=== PATIENT | female | born 1990 | race African-American/Black ===

== ENCOUNTER 2021-01-02 11:15 | Emergency (ER) | payer MEDICAID ==
[~2021-01-02] VITALS: Ht 162.6 cm; Wt 53.0 kg
[2021-01-02] MEDS ORDERED: MORPHINE SULFATE 4 MG/ML CPJ (NOT FOR IM USE) IV STA (11:46)
[2021-01-02] MEDS ORDERED: KETOROLAC 30MG/ML VIAL IV STA (11:46)
[2021-01-02] MEDS ORDERED: ONDANSETRON HCL 4MG/2ML INJ IV STA (11:46)
[2021-01-02] MEDS ORDERED: SODIUM CHLORIDE 0.9% 1,000 ML IV ONE (12:00)
[2021-01-02 12:15] VITALS: BP 108/22
== END 2021-01-02 13:56 | disposition left against medical advice (07) ==
LOC: ER 11:15
DX: D57.00 Hb-SS disease with crisis, unspecified (principal); M54.89 Other dorsalgia; I10 Essential (primary) hypertension; F12.10 Cannabis abuse, uncomplicated; F17.210 Nicotine dependence, cigarettes, uncomplicated
CPT/HCPCS: 99281; J7030; Z7610

== ENCOUNTER 2021-12-17 19:31 | Emergency (ER) | payer MEDICAID ==
[~2021-12-17] VITALS: Ht 162.6 cm; Wt 50.0 kg
[2021-12-17] MEDS ORDERED: MORPHINE SULFATE 4 MG/ML CPJ (NOT FOR IM USE) IV STA (19:44)
[2021-12-17] MEDS ORDERED: ONDANSETRON HCL 4MG/2ML INJ IV STA (19:44)
[2021-12-17] MEDS ORDERED: SODIUM CHLORIDE 0.9% 1,000 ML IV ONE (19:45)
[2021-12-17 20:12] VITALS: BP 118/83
[2021-12-17 20:28] LABS: BASOPHILS % 0.4 % (0.0-2.0); EOSINOPHILS % 5.5 % (0.0-5.0); HEMOGLOBIN. 7.1 g/dL (12.0-16.0); MEAN CORPUSCULAR HEMOGLOBIN 33.6 pg (28.0-32.0); MEAN CORPUSCULAR VOLUME 97.4 fL (81.0-99.0); MEAN PLATELET VOLUME 9.5 fl (7.4-10.4); MONOCYTES % 12.8 % (2.0-8.0); NEUTROPHILS % 68.3 % (40.0-76.0); PLATELET 275 x1000/uL (130-400); RED BLOOD CELL COUNT 2.11 mill/uL (4.2-5.4); RED CELL DISTRIBUTION WIDTH 19.3 % (11.6-14.6)
[2021-12-17 20:36] LABS: CHLORIDE 107 mEq/L (98-107)
[2021-12-17 20:37] LABS: HEMATOCRIT. 20.6 % (36.0-48.0)
[2021-12-17 20:42] LABS: HCG SCREEN NEGATIVE
== END 2021-12-17 23:42 | disposition left against medical advice (07) ==
LOC: ER 19:31
DX: R10.30 Lower abdominal pain, unspecified (principal); D64.9 Anemia, unspecified; E87.6 Hypokalemia; F12.10 Cannabis abuse, uncomplicated; F15.10 Other stimulant abuse, uncomplicated; I10 Essential (primary) hypertension
CPT/HCPCS: 36415; 80053; 84703; 85025; 99283; J7030

== ENCOUNTER 2022-01-01 12:47 | Emergency (ER) | payer MEDICAID ==
[~2022-01-01] VITALS: Ht 162.6 cm; Wt 43.0 kg
[2022-01-01] MEDS ORDERED: ONDANSETRON HCL 4MG/2ML INJ IV ONE (14:15)
[2022-01-01] MEDS ORDERED: HYDROMORPHONE HCL/PF 2MG/ML CPJ IV ONE (14:15)
[2022-01-01] MEDS ORDERED: SODIUM CHLORIDE 0.9% 1,000 ML IV ONE (14:15)
[2022-01-01] MEDS ORDERED: KETOROLAC 15MG/ML VIAL IV ONE (14:15)
[2022-01-01 14:20] LABS: CHLORIDE 104 mEq/L (98-107)
[2022-01-01 14:25] LABS: ETHANOL BLOOD < 10 mg/dL; MEAN CORPUSCULAR HEMOGLOBIN 32.1 pg (28.0-32.0); MEAN CORPUSCULAR VOLUME 94.6 fL (81.0-99.0); MEAN PLATELET VOLUME 10.5 fl (7.4-10.4); PLATELET 154 x1000/uL (130-400); RED BLOOD CELL COUNT 2.08 mill/uL (4.2-5.4); RED CELL DISTRIBUTION WIDTH 15.1 % (11.6-14.6)
[2022-01-01 14:28] LABS: HCG SCREEN NEGATIVE
[2022-01-01 14:30] LABS: HEMATOCRIT. 19.7 % (36.0-48.0); HEMOGLOBIN. 6.7 g/dL (12.0-16.0)
[2022-01-01 14:37] LABS: *AMPHETAMINES SCREEN URINE NEGATIVE (NEGATIVE); *BARBITURATES SCREEN URINE NEGATIVE (NEGATIVE); *BENZODIAZEPINES SCREEN URINE NEGATIVE (NEGATIVE); METHADONE URINE SCREEN NEGATIVE (NEGATIVE)
[2022-01-01 14:38] LABS: PHENCYCLIDINE URINE SCREEN NEGATIVE (NEGATIVE)
[2022-01-01 14:51] LABS: *COCAINE SCREEN URINE PRESUMTIVE POSITIVE (NEGATIVE); CANNABINOID URINE SCREEN PRESUMTIVE POSITIVE (NEGATIVE); OPIATES URINE SCREEN PRESUMTIVE POSITIVE (NEGATIVE)
[2022-01-01] MEDS ORDERED: IBUP-2029 MT (15:21)
[2022-01-01 15:30] VITALS: BP 143/80
[2022-01-01 16:54] LABS: NUCLEATED RED BLOOD CELLS 2 /100 WBC; PLATELET ESTIMATE NORMAL
== END 2022-01-01 15:51 | disposition home or self-care (01) ==
LOC: ER 12:47
DX: D57.00 Hb-SS disease with crisis, unspecified (principal); D72.829 Elevated white blood cell count, unspecified; I10 Essential (primary) hypertension; R01.1 Cardiac murmur, unspecified; Z90.49 Acquired absence of other specified parts of digestive tract
CPT/HCPCS: 36415; 71045; 80053; 80305; 80320; 83690; 83880; 84484; 84703; 85025; 93005; 96361; 96374; 96375; 99285; J1170; J1885; J2405; J7030; Z7610; G0480

== ENCOUNTER 2022-07-11 01:39 | Emergency (ER) | payer MEDICAID ==
[~2022-07-11] VITALS: Ht 162.6 cm; Wt 46.0 kg
[~2022-07-11 01:39] MED LIST: IBUP-2029 MT
[2022-07-11 05:14] LABS: MEAN CORPUSCULAR HEMOGLOBIN 32.1 pg (28.0-32.0); MEAN CORPUSCULAR VOLUME 93.9 fL (81.0-99.0); MEAN PLATELET VOLUME 9.8 fl (7.4-10.4); PLATELET 349 x1000/uL (130-400); RED BLOOD CELL COUNT 1.93 mill/uL (4.2-5.4); RED CELL DISTRIBUTION WIDTH 22.7 % (11.6-14.6)
[2022-07-11] MEDS ORDERED: ACETAMINOPHEN 325MG TABLET PO NR (05:15)
[2022-07-11] MEDS ORDERED: SODIUM CHLORIDE 0.9% 1,000 ML IV ONE (05:15)
[2022-07-11 05:18] LABS: CHLORIDE 95 mEq/L (98-107)
[2022-07-11 05:26] LABS: HEMOGLOBIN. 6.2 g/dL (12.0-16.0)
[2022-07-11 05:27] LABS: HEMATOCRIT. 18.1 % (36.0-48.0)
[2022-07-11 05:33] LABS: ETHANOL BLOOD < 10 mg/dL
[2022-07-11 06:43] LABS: CLARITY URINE CLEAR (CLEAR); COLOR URINE DARK YELLOW (YELLOW); KETONES URINE NEGATIVE (NEGATIVE); LEUKOCYTE ESTERASE URINE NEGATIVE (NEGATIVE); NITRITE URINE NEGATIVE (NEGATIVE); OCCULT BLOOD URINE NEGATIVE (NEGATIVE); PROTEIN URINE TRACE (NEGATIVE); SPECIFIC GRAVITY URINE 1.009 (1.005-1.030)
[2022-07-11] MEDS ORDERED: IOHEXOL-350 100 ML BOTTLE ONE (06:48)
[2022-07-11 06:58] LABS: NUCLEATED RED BLOOD CELLS 18 /100 WBC
[2022-07-11 07:00] LABS: PLATELET ESTIMATE NORMAL
[2022-07-11 07:08] LABS: *AMPHETAMINES SCREEN URINE NEGATIVE (NEGATIVE); *BARBITURATES SCREEN URINE NEGATIVE (NEGATIVE); *BENZODIAZEPINES SCREEN URINE NEGATIVE (NEGATIVE); *COCAINE SCREEN URINE NEGATIVE (NEGATIVE); METHADONE URINE SCREEN NEGATIVE (NEGATIVE); OPIATES URINE SCREEN NEGATIVE (NEGATIVE); PHENCYCLIDINE URINE SCREEN NEGATIVE (NEGATIVE)
[2022-07-11 07:32] LABS: CANNABINOID URINE SCREEN PRESUMTIVE POSITIVE (NEGATIVE)
[2022-07-11] MEDS ORDERED: ACET-2708 MT (07:56)
[2022-07-11 08:12] VITALS: BP 105/35
[2022-08-02] MEDS ORDERED: TOPUD MT (13:52)
[2022-08-02] MEDS ORDERED: NITR-87 MT (14:14)
== END 2022-07-11 08:18 | disposition home or self-care (01) ==
LOC: ER 01:39
DX: O99.011 Anemia complicating pregnancy, first trimester (principal); D57.1 Sickle-cell disease without crisis; Z3A.11 11 weeks gestation of pregnancy
CPT/HCPCS: 36415; 71045; 71275; 76801; 76817; 80053; 80305; 80320; 81003; 81025; 83880; 84484; 84702; 85025; 85044; 85379; 93005; 93970; 96360; 99285; J7030; Q9967; G0480